=== PATIENT | female | born 2000 | race Caucasian/White ===

== ENCOUNTER 2021-03-11 11:30 | Emergency (ER) | payer MEDICAID ==
[~2021-03-11] VITALS: Ht 165.1 cm; Wt 70.5 kg
--- NOTE | 2021-03-11 11:52 | NUR ---
Dr. Jarrett notified EKG has been set at his desk/computer.
[2021-03-11] MEDS ORDERED: ACETAMINOPHEN 500 MG TABLET PO ONE (12:00)
[2021-03-11] MEDS ORDERED: IV NORMAL SALINE 1000ML BAG 1,000 ML IV ONE (12:00)
--- NOTE | 2021-03-11 12:12 | RAD ---
INDICATION: Reason: chest pain / Spl. Instructions: / History: COMPARISON: None available FINDINGS: Single view of chest obtained. Cardiac silhouette is unremarkable. There are some surgical clips projecting over the neck. Mild interstitial opacities at left greater than right lung base. IMPRESSION: * Mild interstitial opacities at left greater than right lung base. Could be secondary to atelectasi s given the location with mild interstitial infiltrate also within the differential. Electronically signed by: Neo Molina MD (03/11/2021 12:09 PM) [id number]
[2021-03-11 12:42] LABS: BASO % 0 % (0-3); EOS % 0 % (0-3); HEMATOCRIT 43.6 % (36.0-47.0); HEMOGLOBIN 14.9 g/dL (12.0-15.5); LYMPH # 0.9 x10^3/uL (1.0-4.8); LYMPH % 18 % (24-48); MEAN CORPUSCULAR HEMOGLOBIN 30 pg (25-35); MEAN CORPUSCULAR HGB CONC 34 g/dL (31-37); MEAN CORPUSCULAR VOLUME 89 fL (79-100); MONO # 0.3 x10^3/uL (0.0-1.1); MONO % 6 % (0-9); NEUT # 3.9 x10^3/uL (1.8-7.7); NEUT % 76 % (31-73); PLATELET COUNT 225 x10^3/uL (140-400); RED BLOOD COUNT 4.93 x10^6/uL (3.50-5.40); RED CELL DISTRIBUTION WIDTH 13.4 % (11.5-14.5); WHITE BLOOD COUNT 5.1 x10^3/uL (4.0-11.0)
[2021-03-11 12:54] LABS: CALCIUM 9.1 mg/dL (8.5-10.1); GFR 70.7; POTASSIUM 3.9 mmol/L (3.5-5.1)
[2021-03-11 13:00] LABS: ALBUMIN 3.8 g/dL (3.4-5.0); ALBUMIN/GLOBULIN RATIO 1.3 (1.0-1.7); MAGNESIUM 2.2 mg/dL (1.8-2.4); TOTAL BILIRUBIN 0.6 mg/dL (0.2-1.0); TOTAL PROTEIN 6.7 g/dL (6.4-8.2)
[2021-03-11 13:10] LABS: BILIRUBIN,URINE NEGATIVE (NEG); CLARITY,URINE CLOUDY; COLOR,URINE YELLOW; NITRITE,URINE POSITIVE (NEG); PROTEIN,URINE NEGATIVE (NEG-TRACE)
[2021-03-11 13:16] LABS: BARBITURATES NEG (NEG); BENZODIAZEPINES NEG (NEG); CANNABINOIDS NEG (NEG); COCAINE NEG (NEG); METHADONE NEG (NEG); OPIATES NEG (NEG); PHENCYCLIDINE NEG (NEG)
[2021-03-11 13:18] LABS: AMPHETAMINE/METHAMPHETAMINE NEG (NEG)
[2021-03-11 13:20] LABS: BACTERIA,URINE MANY /HPF (0-FEW)
[2021-03-11] MEDS ORDERED: cefTRIAXone IV Push 1 GM VIAL. IVP ONE (14:15)
[2021-03-11 15:10] VITALS: BP 127/66
--- NOTE | 2021-03-11 15:18 | PHYS DOC ---
Past Medical History Additional Past Medical Histor: thyroid cancer, radioactive iodine treatment x1 Past Surgical History: Cancer Surgery, Other Additional Past Surgical Histo: thyroidectomy, right neck disection Smoking Status: Never Smoker Alcohol Use: None General Adult EDM: Chief Complaint: CHEST PAIN HPI: HPI: Patient is a 20 year old transgender patient currently changing from female to male prefers to be addressed as a male by name of Sunil who presents to the ED today complaining of a 9 out of 10 midsternal chest pain radiating to the left arm symptoms intermittently since this morning. Patient is also complaining of nausea with no vomiting, shortness of breath and a headache. Denies any chance she is . Denies any fever, coughing, congestion. Reports receiving Covid vaccine. Patient states his chest pain is worse on deep breaths. Review of Systems: Review of Systems: Constitutional: Denies fever or chills. [] Eyes: Denies change in visual acuity. [] HENT: Denies nasal congestion or sore throat. [] Respiratory: Reports shortness of breath, denies unusual coughing Cardiovascular: Reports chest pain GI: Denies abdominal pain, nausea, vomiting, bloody stools or diarrhea. [] : Denies dysuria. [] Musculoskeletal: Denies back pain or joint pain. [] Integument: Denies rash. [] Neurologic: Reports headache, denies focal weakness or sensory changes. [] Psychiatric: Denies depression or anxiety. [] Heart Score: C/O Chest Pain: N/A Risk Factors: Risk Factors: DM, Current or recent (<one month) smoker, HTN, HLP, family history of CAD, obesity. Risk Scores: Score 0 - 3: 2.5% MACE over next 6 weeks - Discharge Home Score 4 - 6: 20.3% MACE over next 6 weeks - Admit for Clinical Observation Score 7 - 10: 72.7% MACE over next 6 weeks - Early Invasive Strategies Current Medications: Current Medications Medications (Trade) Dose Ordered Sig/Izaiah Start Time Stop Time Status Last Admin Dose Admin Acetaminophen (Tylenol) 1,000 mg 1X ONCE 03/11/21 12:00 03/11/21 12:13 DC 03/11/21 13:03 1,000 MG Ceftriaxone Sodium (Rocephin) 1 gm 1X ONCE 03/11/21 14:15 03/11/21 14:16 DC Sodium Chloride 1,000 ml @ 1,000 mls/hr 1X ONCE 03/11/21 12:00 03/11/21 12:59 DC 03/11/21 13:03 1,000 MLS/HR Allergies: Allergies: Allergies Coded Allergies Type Severity Reaction Last Updated Verified No Known Drug Allergies 03/11/21 No Physical Exam: PE: Constitutional: Well developed, well nourished, no acute distress, non-toxic appearance. [] HENT: Normocephalic, atraumatic, bilateral external ears normal, oropharynx moist, no oral exudates, nose normal. [] Eyes: PERRLA, EOMI, conjunctiva normal, no discharge. [] Neck: Normal range of motion, no tenderness, supple, no stridor. [] Cardiovascular:Heart rate regular rhythm, no murmur [] Lungs & Thorax: Bilateral breath sounds clear to auscultation [] Abdomen: Bowel sounds normal, soft, no tenderness, no masses, no pulsatile masses. [] Skin: Warm, dry, no erythema, no rash. [] Back: No tenderness, no CVA tenderness. [] Extremities: No tenderness, no cyanosis, no clubbing, ROM intact, no edema. [] Neurologic: Alert and oriented X 3, normal motor function, normal sensory function, no focal deficits noted. [] Psychologic: Affect normal, judgement normal, mood normal. [] Current Patient Data: Labs: Laboratory Tests Test 03/11/21 12:20 03/11/21 12:45 White Blood Count 5.1 x10^3/uL (4.0-11.0) Red Blood Count 4.93 x10^6/uL (3.50-5.40) Hemoglobin 14.9 g/dL (12.0-15.5) Hematocrit 43.6 % (36.0-47.0) Mean Corpuscular Volume 89 fL (79-100) Mean Corpuscular Hemoglobin 30 pg (25-35) Mean Corpuscular Hemoglobin Concent 34 g/dL (31-37) Red Cell Distribution Width 13.4 % (11.5-14.5) Platelet Count 225 x10^3/uL (140-400) Neutrophils (%) (Auto) 76 % (31-73) H Lymphocytes (%) (Auto) 18 % (24-48) L Monocytes (%) (Auto) 6 % (0-9) Eosinophils (%) (Auto) 0 % (0-3) Basophils (%) (Auto) 0 % (0-3) Neutrophils # (Auto) 3.9 x10^3/uL (1.8-7.7) Lymphocytes # (Auto) 0.9 x10^3/uL (1.0-4.8) L Monocytes # (Auto) 0.3 x10^3/uL (0.0-1.1) Eosinophils # (Auto) 0.0 x10^3/uL (0.0-0.7) Basophils # (Auto) 0.0 x10^3/uL (0.0-0.2) Sodium Level 140 mmol/L (136-145) Potassium Level 3.9 mmol/L (3.5-5.1) Chloride Level 106 mmol/L (98-107) Carbon Dioxide Level 28 mmol/L (21-32) Anion Gap 6 (6-14) Blood Urea Nitrogen 10 mg/dL (7-20) Creatinine 1.0 mg/dL (0.6-1.0) Estimated GFR (Cockcroft-Gault) 70.7 BUN/Creatinine Ratio 10 (6-20) Glucose Level 117 mg/dL (70-99) H Lactic Acid Level 1.8 mmol/L (0.4-2.0) Calcium Level 9.1 mg/dL (8.5-10.1) Magnesium Level 2.2 mg/dL (1.8-2.4) Total Bilirubin 0.6 mg/dL (0.2-1.0) Aspartate Amino Transferase (AST) 15 U/L (15-37) Alanine Aminotransferase (ALT) 22 U/L (14-59) Alkaline Phosphatase 92 U/L (46-116) Troponin I Quantitative < 0.017 ng/mL (0.000-0.055) JF-Kad-L-Type Natriuretic Peptide 24 pg/mL (0-124) Total Protein 6.7 g/dL (6.4-8.2) Albumin 3.8 g/dL (3.4-5.0) Albumin/Globulin Ratio 1.3 (1.0-1.7) Lipase 123 U/L (73-393) Thyroid Stimulating Hormone (TSH) 0.015 uIU/mL (0.358-3.74) L Urine Collection Type Void Urine Color Yellow Urine Clarity Cloudy Urine pH 8.0 (<5.0-8.0) Urine Specific [place] 1.010 (1.000-1.030) Urine Protein Negative mg/dL (NEG-TRACE) Urine Glucose (UA) Negative mg/dL (NEG) Urine Ketones (Stick) Negative mg/dL (NEG) Urine Blood Negative (NEG) Urine Nitrite Positive (NEG) Urine Bilirubin Negative (NEG) Urine Urobilinogen Dipstick 1.0 mg/dL (0.2 mg/dL) Urine Leukocyte Esterase Moderate (NEG) Urine RBC 1-2 /HPF (0-2) Urine WBC 11-20 /HPF (0-4) Urine Squamous Epithelial Cells Mod /LPF Urine Bacteria Many /HPF (0-FEW) Urine Mucus Marked /LPF Urine Opiates Screen Neg (NEG) Urine Methadone Screen Neg (NEG) Urine Barbiturates Neg (NEG) Urine Phencyclidine Screen Neg (NEG) Urine Amphetamine/Methamphetamine Neg (NEG) Urine Benzodiazepines Screen Neg (NEG) Urine Cocaine Screen Neg (NEG) Urine Cannabinoids Screen Neg (NEG) Urine Ethyl Alcohol Neg (NEG) Laboratory Tests 03/11/21 12:20 Laboratory Tests 03/11/21 12:20 Vital Signs: Vital Signs Date Time Temp Pulse Resp B/P (MAP) Pulse Ox O2 Delivery O2 Flow Rate FiO2 03/11/21 11:45 99.6 112 20 157/92 96 Room Air 99.6 EKG: EK interpreted by Dr. Jarrett sinus tachycardia heart rate 104 no STEMI [] Radiology/Procedures: Radiology/Procedures: []PROCEDURE: PORTABLE CHEST 1V INDICATION: Reason: chest pain / Spl. Instructions: / History: COMPARISON: None available FINDINGS: Single view of chest obtained. Cardiac silhouette is unremarkable. There are some surgical clips projecting over the neck. Mild interstitial opacities at left greater than right lung base. IMPRESSION: * Mild interstitial opacities at left greater than right lung base. Could be secondary to atelectasis given the location with mild interstitial infiltrate also within the differential. Electronically signed by: Neo Molina MD (03/11/2021 12:09 PM) DESKTOP- [id number] DICTATED and SIGNED BY: NEO MOLINA MD DATE: 03/11/21 [id number] 0 Course & Med Decision Making: Course & Med Decision Making Pertinent Labs and Imaging studies reviewed. (See chart for details) This is a 20-year-old female patient in the process of changing sex to male currently preferring to be addressed as male by name of Sunil complaining of chest pain, shortness of breath, dizziness, nausea, headache, symptoms since this morning. Vitals on arrival to the ED temperature 99.6, heart rate 112, blood pressure 157/92, O2 sats 96% EKG is negative, labs are negative. Chest x-ray noted for possible early pneumonia. Positive for UTI. Given Rocephin IV in the ED. Discharged on Augmentin. Instructed to push fluids. Follow-up with PCP in 1 to 2 weeks. OTC pain relievers. Covid test is pending. We will call patient with the results Drageleazar Disclaimer: Shefali Disclaimer: This electronic medical record was generated, in whole or in part, using a voice recognition dictation system. Departure Departure Impression: Primary Impression: Person under investigation for COVID-19 Additional Impressions: UTI (urinary tract infection) Qualified Codes: N39.0 - Urinary tract infection, site not specified Chest pain Qualified Codes: R07.9 - Chest pain, unspecified Bilateral pneumonia Fever Qualified Codes: R50.82 - Postprocedural fever Disposition: 01 HOME / SELF CARE / HOMELESS Condition: STABLE Referrals: NO PCP (PCP) Follow-up with your primary care doctor in 1 week Patient Instructions: Pneumonia, Adult, Urinary Tract Infection Additional Instructions: You were evaluated in the emergency room, you are positive for urinary tract infection and possibly have early pneumonia. Please take the prescribed antibiotics until completed. Please push fluids, take Tylenol or Motrin for pain or fever. You were tested for COVID-19, please quarantine yourself until you get results from us. Rest, push fluids, maintain good and hygiene. Scripts Amoxicillin/Potassium Clav (AUGMENTIN 875-125 TABLET) 1 Each Tablet 1 TAB PO BID for 7 Days, #14 TAB 0 Refills Prov: GUS BURCIAGA MARY BETH 03/11/21 GUS BURCIAGA MARY BETH Mar 11, 2021 15:18
[2021-03-11] MEDS ORDERED: AMOX1TAB61 PO (15:23)
[2021-03-11 16:02] LABS: INFLUENZA A PATIENT NEGATIVE (NEGATIVE); INFLUENZA B PATIENT NEGATIVE (NEGATIVE)
--- NOTE | 2021-03-11 16:11 | EKG ---
[facility] [address] [place] [address] Test Date: 2021-03-11 Test Time: 12:23:30 Pat Name: BENITO ROBERTO Department: Room: Gender: F Community Development Aide: : 2000 Requested By: GUS BURCIAGA Order Number: [id number] Reading MD: Measurements Intervals [place] Rate: 104 P: 57 SC: 136 QRS: 39 QRSD: 82 T: 37 QT: 310 QTc: 413 Interpretive Statements SINUS TACHYCARDIA OTHERWISE NORMAL ECG RI6.02 No previous ECG available for comparison
--- NOTE | 2021-03-13 10:34 | NUR ---
IP: Informed pt of negative rapid covid test. Pt verbalized understanding.
== END 2021-03-11 15:35 | disposition home or self-care (01) ==
LOC: ER 11:30
DX: J18.9 Pneumonia, unspecified organism (principal); Z20.822 Contact with and (suspected) exposure to COVID-19; N39.0 Urinary tract infection, site not specified; R07.2 Precordial pain; R50.82 Postprocedural fever
CPT/HCPCS: 36415; 71045; 80053; 80307; 81001; 83605; 83690; 83735; 83880; 84443; 84484; 85025; 87040; 87086; 87426; 87804; 93005; 96361; 96374; 99285; J0696; J7030

== ENCOUNTER 2021-08-01 15:03 | Emergency (ER) | payer MEDICAID ==
[~2021-08-01] VITALS: Ht 165.1 cm; Wt 70.0 kg
[~2021-08-01 15:03] MED LIST: AMOX1TAB61 PO
[2021-08-01 16:43] VITALS: BP 136/67
--- NOTE | 2021-08-01 17:16 | RAD ---
EXAMINATION: Chest radiograph. VIEWS: Single AP view of the chest COMPARISON: 03/11/2021 INDICATION:21 years, Female, cough. FINDINGS: Normal cardiomediastinal silhouette. No focal consolidation. No pleural effusion or pneumothorax. No acute osseous process. IMPRESSION: No acute cardiopulmonary process. Electronically signed by: Dwayne Rizvi DO (08/01/2021 5:13 PM) [facility]
[2021-08-01 17:57] LABS: INFLUENZA A PATIENT NEGATIVE (NEGATIVE); INFLUENZA B PATIENT NEGATIVE (NEGATIVE)
--- NOTE | 2021-08-01 18:30 | PHYS DOC ---
Past Medical History Additional Past Medical Histor: thyroid cancer, radioactive iodine treatment x1 Past Surgical History: Cancer Surgery, Other Additional Past Surgical Histo: thyroidectomy, right neck disection Smoking Status: Never Smoker Alcohol Use: None General Adult EDM: Chief Complaint: HEADACHE HPI: HPI: Patient is a 21 year old transgender patient currently changing from female to male (prefers to be addressed as a male by name of Sunil) who presents to the ED today complaining of headache, dizziness, shortness of breath, symptoms for 4 days. Patient denies anything exacerbating his dizziness, denies any fever, nasal congestion. Reports being fully vaccinated against COVID-19 but is concerned he could have it. Review of Systems: Review of Systems: Constitutional: Denies fever or chills. [] Eyes: Denies change in visual acuity. [] HENT: Denies nasal congestion or sore throat. [] Respiratory: Reports shortness of breath. Cardiovascular: Denies chest pain or edema. [] GI: Denies abdominal pain, nausea, vomiting, bloody stools or diarrhea. [] : Denies dysuria. [] Musculoskeletal: Denies back pain or joint pain. [] Integument: Denies rash. [] Neurologic: Reports headache and dizziness focal weakness or sensory changes. [] Psychiatric: Denies depression or anxiety. [] Heart Score: C/O Chest Pain: N/A Risk Factors: Risk Factors: DM, Current or recent (<one month) smoker, HTN, HLP, family history of CAD, obesity. Risk Scores: Score 0 - 3: 2.5% MACE over next 6 weeks - Discharge Home Score 4 - 6: 20.3% MACE over next 6 weeks - Admit for Clinical Observation Score 7 - 10: 72.7% MACE over next 6 weeks - Early Invasive Strategies Allergies: Allergies: Allergies Coded Allergies Type Severity Reaction Last Updated Verified No Known Drug Allergies 03/11/21 No Physical Exam: PE: Constitutional: Well developed, well nourished, no acute distress, non-toxic appearance. [] HENT: Normocephalic, atraumatic, bilateral external ears normal, oropharynx moist, no oral exudates, nose normal. [] Eyes: PERRLA, EOMI, conjunctiva normal, no discharge. [] Neck: Normal range of motion, no tenderness, supple, no stridor. [] Cardiovascular:Heart rate regular rhythm, no murmur [] Lungs & Thorax: Bilateral breath sounds clear to auscultation [] Abdomen: Bowel sounds normal, soft, no tenderness, no masses, no pulsatile masses. [] Skin: Warm, dry, no erythema, no rash. [] Back: No tenderness, no CVA tenderness. [] Extremities: No tenderness, no cyanosis, no clubbing, ROM intact, no edema. [] Neurologic: Alert and oriented X 3, normal motor function, normal sensory function, no focal deficits noted. [] Psychologic: Affect normal, judgement normal, mood normal. [] Current Patient Data: Labs: Laboratory Tests Test 08/01/21 17:00 Influenza Type A Antigen Negative (NEGATIVE) Influenza Type B Antigen Negative (NEGATIVE) SARS-CoV-2 Antigen (Rapid) Negative (NEGATIVE) Vital Signs: Vital Signs Date Time Temp Pulse Resp B/P (MAP) Pulse Ox O2 Delivery O2 Flow Rate FiO2 08/01/21 16:43 98.4 88 16 136/67 (90) 94 Room Air 98.4 EKG: EKG: [] Radiology/Procedures: Radiology/Procedures: []PROCEDURE: CHEST AP ONLY EXAMINATION: Chest radiograph. VIEWS: Single AP view of the chest COMPARISON: 03/11/2021 INDICATION:21 years, Female, cough. FINDINGS: Normal cardiomediastinal silhouette. No focal consolidation. No pleural effusion or pneumothorax. No acute osseous process. IMPRESSION: No acute cardiopulmonary process. Electronically signed by: Bonita Cadet DO (08/01/2021 5:13 PM) [facility] DICTATED and SIGNED BY: BONITA CADET DO DATE: 08/01/21 [id number] 0 Course & Med Decision Making: Course & Med Decision Making Pertinent Labs and Imaging studies reviewed. (See chart for details) This is a 21-year-old female patient-transitioning to male presented to the ED today complaining of shortness of breath, dizziness and a headache, symptoms for 4 days. Concerned about COVID-19. Chest x-ray is negative for any acute findings. Negative influenza A&B, negative rapid covid test. Vitals are stable. Discharge to home. Supportive care measures recommended. Will be contacted with PCR Covid test unavailable Dragon Disclaimer: Drageleazar Disclaimer: This electronic medical record was generated, in whole or in part, using a voice recognition dictation system. Departure Departure Impression: Primary Impression: Person under investigation for COVID-19 Additional Impressions: Headache Qualified Codes: R51.9 - Headache, unspecified Shortness of breath Dizziness Disposition: HOME / SELF CARE / HOMELESS Condition: STABLE Referrals: NON,STAFF (PCP) follow up with your doctor in one week Patient Instructions: Headache, FAQs, Shortness of Breath Additional Instructions: You were evaluated in the emergency room. Your chest x-ray is negative for any acute findings, your rapid Covid test is negative. Please quarantine yourself until you get results from us on the PCR Covid test. Rest, push fluids. Take Tylenol or Motrin for pain or fever. Maintain good hand hygiene. See your doctor in 1 week GUS BURCIAGA APRN Aug 01, 2021 18:30
--- NOTE | 2021-08-03 15:10 | NUR ---
IP: Attempted to contact pt concerning covid results. No answer, left a voicemail to return the call.
--- NOTE | 2021-08-04 09:02 | NUR ---
IP: Informed pt of negative covid test. Pt verbalized understanding.
== END 2021-08-01 18:53 | disposition home or self-care (01) ==
LOC: ER 15:03
DX: R51.9 Headache, unspecified (principal); R06.02 Shortness of breath; R42 Dizziness and giddiness; Z20.822 Contact with and (suspected) exposure to COVID-19
CPT/HCPCS: 71045; 87426; 87804; 99284; U0003; U0005